=== PATIENT | female | born 1950 | race Caucasian/White ===

== ENCOUNTER 2024-10-05 10:24 | Outpatient (CLI) | payer MEDICARE, BC ==
[2024-10-05] MEDS ORDERED: iohexol 350MG/ML 100ml bottle IV ONE (10:37)
== END 2024-10-05 23:59 | disposition home or self-care (01) ==
LOC: RAD 10:24
PROVIDERS: ATTEND Internal Medicine Cardiovascular Disease
DX: R91.1 Solitary pulmonary nodule (principal); I26.99 Other pulmonary embolism without acute cor pulmonale; I51.7 Cardiomegaly
CPT/HCPCS: 71275; Q9967